=== PATIENT | female | born 1965 | race Caucasian/White ===

== ENCOUNTER 2024-01-23 15:02 | Outpatient (CLI) | payer BC, SELFPAY ==
[2024-01-30 17:14] LABS: Alpha-1-Antitrypsin 124 mg/dL (101-187); Phenotype (PI) MZ (.)
== END 2024-01-23 23:59 | disposition home or self-care (01) ==
LOC: LAB 15:05
PROVIDERS: PCP Nurse Practitioner; Visit Provider Internal Medicine Pulmonary Disease
DX: J43.9 Emphysema, unspecified (principal); Z72.0 Tobacco use
CPT/HCPCS: 36415; 82103; 82104

== ENCOUNTER 2024-01-29 06:42 | Outpatient (CLI) | payer BC, SELFPAY ==
--- NOTE | 2024-01-29 07:04 | CT_ITS ---
FINAL REPORT TECHNIQUE: Axial images were obtained through the chest without contrast. This study was performed with techniques to keep radiation doses as low as reasonably achievable, (ALARA). Individualized dose reduction techniques using automated exposure control or adjustment of mA and/or kV according to the patient's size were employed. CLINICAL HISTORY: Epmhysema FINDINGS: There is mild ectasia of the ascending aorta measuring 3.7 cm. There is no significant mediastinal mass or adenopathy. There are advanced changes of centrilobular emphysema. There are 2 noncalcified nodular densities in the medial right upper lobe. There is an 8 mm density well seen on image 55 of series 3. There is a 9 mm density well seen on image 58 of series 3. Small noncalcified nodules are seen in the medial left lower lobe measuring up to 4 mm. This is well-seen on image 89 of series 3. The heart size is normal. There is no pericardial or pleural effusion. Limited images of the upper abdomen are unremarkable. IMPRESSION: Pulmonary nodules as detailed above. Recommend follow-up in 3 to 6 months as per Fleischners criteria. Reviewed, Interpreted and Dictated by Austyn Haq MD Transcribed by Inez Burr Authenticated and [facility]
== END 2024-01-29 23:59 | disposition home or self-care (01) ==
LOC: RAD 06:43
PROVIDERS: PCP Nurse Practitioner; Visit Provider Internal Medicine Pulmonary Disease
DX: R91.8 Other nonspecific abnormal finding of lung field (principal)
CPT/HCPCS: 71250

== ENCOUNTER 2024-06-05 09:41 | Outpatient (CLI) | payer BC, SELFPAY ==
[2024-06-05 10:40] VITALS: PULSE 87
[2024-06-05] MEDS: ALBUTEROL 0.083% 2.5 MG/3 ML NEB IH (10:40)
== END 2024-06-05 23:59 | disposition home or self-care (01) ==
LOC: RT 09:41
PROVIDERS: PCP Nurse Practitioner; Visit Provider Internal Medicine Pulmonary Disease
DX: R06.09 Other forms of dyspnea (principal)
CPT/HCPCS: 94060; 94618; 94640; 94726; 94729; J7613

== ENCOUNTER 2024-08-06 13:33 | Outpatient (CLI) | payer BC, SELFPAY ==
--- OUTSIDE RECORDS SUMMARY | 2024-08-06 13:35 | XMS_ITS | Continuity of Care Document ---
Author Organization [facility] & [place] [facility] Address [address] [place] [address] Care Team Providers Care Flatbed Stitcher Name Role Phone LINDA KENDRICK Primary Care Provider LAURA HARE Postpartum Nurse [facility] Primary Care Provider Assessment Encounter Date Assessment Date Assessment LastModified by Organization Details LastModified Time 06/23/2024 06/23/2024 -continue Carbamazepine 200 mg TID -reviewed epilepsy education -reviewed diagnosis and treatment plan -f/u as scheduled [facility] Not available 06/23/2024 10:42:57 Plan of Treatment Reminders Order Date Submit Date Provider Last Modified By Organization Details Last Modified Time Details Appointments OV EST 15 025 10:30AM Laura Hare NP Not available Not available Not available OV EST 15 026 10:30AM Faustino Rivera M.D Not available Not available Not available Lab None record ed. Referral None record ed. Procedures None record ed. Surgeries None record ed. Imaging None record ed. Medication Orders None record ed. Patient TargetsNo targets recorded. Patient InstructionsNo instructions recorded. Reason for Referral None Reported. Problems Name Problem SNOMED Code Status Onset Date Resolution Date Notes Provider Name and Address Organization Details Recorded Time Helicobacter pylori-associ ated gastritis 295892403 Active 2023 Laura Hare NP [address], [address], [place], [address] , [facility] & [place] 4 15:14:14 Peptic ulcer 86093303 Active 2023 Laura Hare NP [address], [address], [place], [address] , [place] - [facility] - [place] & [place] 4 15:18:18 Nausea 821425993 Active 2023 Laura Hare NP [address], [address], [place], [address] , [place] [facility] [place] & [place] 4 15:45:40 Upper abdominal pain 53827514 Active 2023 Not Available [facility] 4 08:57:33 Irritable bowel syndrome characterized by alternating bowel habit 075536305 Active 2023 Not Available [facility] 4 08:57:33 Unintentional weight loss 652613750 Active 2023 Not Available [facility] 4 08:57:33 Problem Notes None recorded. Procedures Surgical History Date Name Laterality Status Provider Name and Address Organization Details Recorded Time 02/13/20 24 EGD/Endoscopy completed Sepideh Byrd [place] [facility] [place] 02/25/2024 14:51:35 01/02/20 24 EGD/Endoscopy completed Carolynn Dsouza [place] [facility] [place] & [place] 01/22/2024 17:21:27 01/02/20 24 Colonoscopy completed Carolynn Dsouza [place] [facility] [place] & [place] 01/22/2024 17:21:36 12/16/19 24 Date of Last Colonoscopy completed Jossie Cheng [place] [facility] [place] & [place] 06/23/2024 09:53:45 10/24/19 24 completed [facility] [place] [facility] [place] 12/05/2023 15:17:22 10/19/19 20 Date of Last Pap Smear completed Renetta [place] [facility] - [place] & [place] 12/05/2023 15:17:22 10/20/19 19 Most Recent Bone Density completed Renetta Phill [place] [facility] [place] 12/05/2023 15:17:22 03/12/19 06 Gastrointestinal Surgery completed Renetta Phill [place] [facility] [place] 12/05/2023 15:19:33 03/12/19 03 Thyroid Surgery completed Renetta [place] [facility] & [place] 12/05/2023 15:19:33 03/12/18 74 Appendectomy completed Renetta [place] [facility] & [place] 12/05/2023 15:19:33 Imaging Results None recorded. Procedure Notes None recorded. Medical Equipment None Reported. Allergies No known drug allergies Medications Name Sig Start Date Stop Date Status Note LastModified by Organization Details LastModified Time quetiapine 25 mg tablet TAKE ONE TABLET BY MOUTH NIGHTLY AT BEDTIME FOR SLEEP 01/27 completed Not Available Not Available Not Available amoxicillin 500 mg capsule TAKE TWO CAPSULES BY MOUTH TWICE DAILY FOR FOURTEEN DAYS 06/04 completed Not Available Not Available Not Available lamotrigine 200 mg tablet TAKE ONE TABLET BY MOUTH EVERY DAY active Not Available Not Available No t Available alprazolam 1 mg tablet TAKE 1 TABLET BY MOUTH TWICE DAILY active Not Available Not Available No t Available nicotine (polacrilex ) 2 mg gum chew a 2 mg piece bucally every 2 hours as needed for nicotine cravings active Not Available Not Available No t Available clarithromy berta 500 mg tablet Take 1 tablet every 12 hours by oral route for 14 days. 06/04 completed Not Available Not Available Not Available ondansetron HCl 4 mg tablet TAKE ONE TABLET BY MOUTH every 4 to 6 hours a needed for 8 days 06/04 completed Not Available Not Available Not Available medroxyprog esterone 5 mg tablet TAKE ONE TABLET BY MOUTH EVERY DAY active Not Available Not Available No t Available sertraline 100 mg tablet TAKE 2 TABLETS BY MOUTH DAILY 12/02 completed Not Available Not Available Not Available amoxicillin 500 mg tablet Take 2 tablets twice a day by oral route for 14 days. 06/04 completed Not Available Not Available Not Available carbamazepi ne 200 mg tablet TAKE ONE TABLET BY MOUTH THREE TIMES DAILY active Not Available Not Available No t Available estradiol 1 mg tablet TAKE ONE TABLET BY MOUTH EVERY DAY active Not Available Not Available No t Available calcium 500 mg (as calcium carbonate 1,250 mg) tablet TAKE ONE TABLET BY MOUTH EVERY DAY active Not Available Not Available No t Available levothyroxi ne 50 mcg tablet TAKE ONE TABLET BY MOUTH EVERY DAY active Not Available Not Available No t Available pantoprazol e 40 mg tablet,christo yed release TAKE ONE TABLET BY MOUTH TWICE DAILY FOR 30 DAYS active Not Available Not Available No t Available buspirone 30 mg tablet TAKE ONE TABLET BY MOUTH TWICE DAILY active Not Available Not Available No t Available promethazin e 25 mg tablet TAKE ONE TABLET BY MOUTH EVERY 4 TO 6 HOURS NEEDED FOR NAUSEA AND FOR VOMITING active Not Available Not Available No t Available mirtazapine 15 mg tablet TAKE ONE TABLET BY MOUTH ONCE DAILY FOR ANXIETY AND FOR SLEEP 12/02 completed Not Available Not Available Not Available albuterol sulfate HFA 90 mcg/actuati on aerosol inhaler inhale TWO puffs BY MOUTH FOUR times a DAY NEEDED FOR SHORTNESS OF BREATH OR wheezing active Not Available Not Available No t Available Vitamin B-12 1,000 mcg tablet TAKE ONE TABLET BY MOUTH EVERY DAY 12/02 completed Not Available Not Available Not Available Laxative (bisacodyl) 5 mg tablet,christo yed release TAKE TWO TABLETS BY MOUTH FOR ONE DAY 01/27 completed Not Available Not Available Not Available mirtazapine 7.5 mg tablet TAKE ONE TABLET BY MOUTH DAILY FOR ANXIETY 12/02 completed Not Available Not Available Not Available cholecalcif colten (vitamin D3) 50 mcg (2,000 unit) tablet TAKE ONE TABLET BY MOUTH EVERY DAY 12/02 completed Not Available Not Available Not Available ClearLax 17 gram/dose oral powder TAKE 10 capfuls in 32 OUNCE gatorade AT FOUR IN THE EVENING DAY BEFORE THE procedure , REPEAT AT FOUR IN THE MORNING ON DAY of procedure . 01/27 completed Not Available Not Available Not Available Vitals Date Recorded Body height Body weight Body temperature Oxygen saturation Oxygen saturation in Arterial blood by Pulse oximetry Heart rate Systolic blood pressure Diastolic blood pressure Provider Name and Address Organization Details Last Updated DateTime 5 162.56 cm 93601.5 5 g 97.7 [degF] 98 % 98 % 86 /min 122 mm[Hg] 78 mm[Hg] Jossie Cheng [place] [facility] [place] & [place] 5 09:53:08 Social History Question Answer Notes LastModified by Organizat ion Details LastModified Time Tobacco Smoking Status Current Every Day Smoker Renetta Phill null, [place] [facility] - [place] & [place] 12/05/2023 15:17:42 Do You Have An Advance Directive? No Information not available 12/05/2023 Are You Blind Or Do You Have Difficulty Seeing? No Information not available 12/05/2023 Are You Passively Exposed To Smoke? No Information not available 12/05/2023 How Much Tobacco Do You Smoke? 1 PPD Information not available 12/05/2023 How Many Years Have You Smoked Tobacco? 40 Information not available 12/05/2023 Sex: Unknown Functional Status Question Answer Note LastModified by Organizat ion Details LastModified Time Do you use any illicit or recreational drugs? No Information not available 12/05/2023 What is your level of alcohol consumption? None Information not available 12/05/2023 Do you or have you ever used smokeless tobacco? Never used smokeless tobacco Information not available 12/05/2023 What is your exercise level? Occasional Information not available 12/05/2023 Mental Status Question Answer Note LastModified by Organization D etails LastModified Time Do you feel stressed (tense, restless, nervous, or anxious, or unable to sleep at night)? [id number] Information not available 12/05/2023 Family History Nothing Reported. Medical History Condition Response Coronary Artery Disease N None N Gout N Colon Cancer N Kidney Stones N Hyperthyroidism N Ear or Hearing Problems Y Thyroid Problems Y Hypothyroidism N Depression N COPD Y GI Problems Y Osteoporosis/Osteopenia N Anemia Y Diverticulitis/Diverticulosis N Colon Polyps N Anxiety Disorder N Diabetes N Bleeding Disorder N Vision or Eye Problems Y Arthritis N Seizures/Epilepsy Y Tuberculosis N Hyperlipidemia N Cancer N Stroke N Asthma N Sleep Apnea N GERD/Reflux N Hepatitis N Liver Disease N Cirrhosis N Psychiatric/Mental Health Condition Y Heart Disease N Hypertension N Kidney Disease N Gynecological History Statement/Question Response Abnormal Pap Y Date of Last Pap Smear 10/19/2019 Date of Last Colonoscopy 12/16/2023 10/24/2023 Most Recent Bone Density 10/19/2018 Date of LMP 05/10/2001 Sexually Active? Y Obstetrics History GPAL:G 0 P 0 0 0 0 Past Encounters Encounter ID Performer Location Encounter Start Date Encounter Closed Date Diagnosis/Indication Diagnosis SNOMED-CT Code Diagnosis ICD10 Code Diagnosis Note [id number] Laura Hare NP [facility] [address] [facility] [place] [address] 06/04/2024 10:47:57 06/04/2024 11:19:27 Peptic ulcer 84412045 K27.9 PUD with significan t edema and partial gastric outlet obstructio n noted on EGD 01/02/24. Follow-up EGD completed 02/13/2024 with peptic ulcer disease again noted with pyloric channel narrowing secondary to chronic inflammati on. Improved from prior EGD 12/2023. Recommend continued avoidance of NSAIDs. Recommend continued use of pantoprazo le 40 mg p.o. b.i.d.. We will send refills today. Irritable bowel syndrome characterized by alternating bowel habit 588097084 K58.9 Experienci ng some occasional episodes of constipati on at this time. Recommend starting miralax 17 gm po daily as well as OTC fiber supplement s for treatment. Colonoscop y with negative random colon biopsies 01/02/2024 . History of Helicobacter pylori infection 3596475090 8602575 Z86.19 History of H pylori gastritis confirmed on pathology from EGD 12/2023. Follow-up EGD completed 02/13/2024 confirmed eradicatio n with negative pathology. I have recommende d starting daily OTC probiotics for 1-2 months. 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 Jennifer Aparicio is a 59 y/o F with a history of epilepsy. She had a GTC seizure at age 23. She has had about 5-6 seizures in her lifetime. Has had workup in the past including brain imaging and EEG and unclear etiology of her epilepsy.Has been on Carbamazepine 200 mg TID for years. No seizures since 2003.She also has anxiety and takes medication for that. Faustino Rivera M.D [address] [place] [address], [address], [place], [address], [place] - [facility] - [place] & [place] 06/23/2024 10:43:51 OBGyn Episode No OBEpisode recorded.
--- OUTSIDE RECORDS SUMMARY | 2024-08-06 13:36 | XMS_ITS | Data Portability ---
Author Organization [place] - [facility] - [place] [facility] ADMIN Address [address] [place] [address] Care Team Providers Care Office Spec Name Role Phone LINDA KENDRICK Primary Care Provider [phone] LAURA HARE Timber Watchman [facility] Primary Care Provider [phone] Assessment Encounter Date Assessment Date Assessment LastModified by Organization Details LastModified Time 06/23/2024 06/23/2024 -continue Carbamazepine 200 mg TID -reviewed epilepsy education -reviewed diagnosis and treatment plan -f/u as scheduled [facility] Not available 06/23/2024 10:42:57 Plan of Treatment Reminders Order Date Submit Date Provider Last Modified By Organization Details Last Modified Time Details Appointments OV EST 15 2024 10:30A M Laura Hare NP Not available Not available Not available OV EST 15 2025 10:30A M Faustino Rivera M.D Not available Not available Not available Lab None recorded . Referral None recorded . Procedures upper endoscop y procedur e (EGD) (PROC) 2023 024 faviola Pichardo MD, [address] [place], [address], 01/04/2024 14:38:18 colonosc opy procedur e (PROC) 2023 024 faviola Pichardo MD, [address] [place], [address], 12/13/2023 09:04:20 upper endoscop y procedur e (EGD) (PROC) 2023 faviola Pichardo MD, [address], Radha [facility], [place], [address], 01/04/2024 14:38:17 Surgeries None recorded . Imaging None recorded . Medication Orders pantopra zole 40 mg tablet,d elayed release 2024 025 [facility], [address] [place] [address], [address], 07/17/2024 11:38:48 Zofran 4 mg tablet 2023 025 [facility], [address] [place] [address], [id number], 06/04/2024 11:09:47 clarithr omycin 500 mg tablet 2023 025 [facility], [address] [place] [address], [id number], 06/04/2024 12:53:22 amoxicil jeanine 500 mg tablet 2023 025 [facility], [address] [place] [address], [address], 06/04/2024 12:53:22 Miralax 17 gram/dos e oral powder 2023 024 [facility], [address] [place] [address], [id number], 12/06/2023 16:51:12 Dulcolax (bisacod yl) 5 mg tablet,d elayed release 2023 024 [facility], [address] [place] [address], [id number], 12/06/2023 16:51:15 Patient TargetsNo targets recorded. Patient InstructionsNo instructions recorded. Reason for Referral None Reported. Results Created Date Observation Date Name Description Value Unit Range Abnormal Flag Note LastModifiedBy Organization Detail LastModifiedTime 01/16/20 24 01/16/2024 RF, upper gastr ointe obinna l tract , w/ air, w/ contr ast [facility] [address] [place] [address] Phone: Fax: Name: BYRON APARICIO Exam Date: : [birth year] Age 58 years Gender : F Access ion: [id number] Physic loida: CHEYENNE HERNANDEZ Facili ty: [facility] Facili ty HSV: Outpat ient Exam: UGI W/AIR CONTRA ST PROCED URE: [place] UPPER GI DOUBLE CONTRA ST CLINIC AL INDICA TION: Peptic ulcer. COMPAR GERALDO: CT abdome n and pelvis dated . TECHNI QUE: A prelim inary rotary filter operator radiog raph of the abdome n was obtain ed. The esopha alanna, stomac h, and proxim al small bowel are evalua ailyn with double contra st techni que using real-t alma rosa fluoro scopy and acquis ition of multip le cine clips. FINDIN GS: Medical Insurance Claims Specialist: Prelim inary rotary filter operator view of the abdome n demons trates a nonobs tructi ve bowel gas patter n. The visual ized lung bases are clear. Esopha alanna: Normal primar y stripp ing wave. Narrow ing is seen at the distal end of the esopha alanna.. No defini te mucosa l abnorm alitie s. No persis tent intral uminal fillin g defect s. No areas of abnorm al extrin sic mass effect . No defini te divert iculum . Normal motili ty. Gastro esopha geal juncti on: No eviden ce of hiatal hernia . No signif icant reflux during the examin ation. 13 mm barium tablet is swallo wed with water withou t diffic ulty and passes to the narrow ed area in the distal esopha alanna. Multip le swallo ws of thick barium are seen to pass around the tablet , howeve r the tablet does not move. Stomac h ^ Duoden um: No eviden ce for fillin g defect , ulcera tion or fold thicke tigre. No defini te abnorm ality of the duoden al bulb and sweep. Visual ized proxim al small bowel normal . IMPRES VALENTIN: Distal esopha geal narrow ing. Fluoro scopy radiat ion dose/D AP: 8 mGy Fluoro scopy time: 1 minute 43 second s Electr onical ly signed by: Sebastián Hollis DO 2023 04:47 PM EST RP Workst ation: [id number] Dictat ed By: Sebastián Hollis Transc ribed By: Transc ribed On: 12:07 PM Electr onical ly signed by: Sebastián Hollis Thank you for referr BYRON Cook to [facility]. Legall y authen ticate d by SERAFIN KUMAR DO 2023-03-17 12:07: 18 CC'ed Logic: Orderi ng Provid er: SLOANE QUINN CC Provid er: MIREILLE PEREZ Attend ing Provid er: SLOANE QUINN Referr ing Provid er: SLOANE QUINN Admitt ing Provid er: SLOANE vee[address] [place] [address] (Radiology) [address] [place] [address] , [place], [address], 01/29/2024 16:15:47 Result Notes None recorded. Problems Name Problem SNOMED Code Status Onset Date Resolution Date Notes Provider Name and Address Organization Details Recorded Time Helicobacter pylori-associ ated gastritis 086331249 Active 2023 Laura Hare NP [address] [facility], [address], [address] , [place] - [facility] [place] & [place] 4 15:14:14 Peptic ulcer 09035889 Active 2023 Laura Hare NP [address] [facility], [address], [address] , [place] - [facility] [place] & [place] 4 15:18:18 Nausea 721324179 Active 2023 Laura Hare NP [address], [address], [address] , [place] - [facility] [place] & [place] 15:45:40 Upper abdominal pain 64059934 Active 2023 Not Available [facility] 4 08:57:33 Irritable bowel syndrome characterized by alternating bowel habit 147143709 Active 2023 Not Available [facility] 4 08:57:33 Unintentional weight loss 371301379 Active 2023 Not Available [facility] 4 08:57:33 Problem Notes None recorded. Procedures Surgical History Date Name Laterality Status Provider Name and Address Organization Details Recorded Time 02/13/20 24 EGD/Endoscopy completed Sepideh Byrd [place] - [facility] [place] & [place] 02/25/2024 14:51:35 01/02/20 24 EGD/Endoscopy completed Carolynn Dsouza [place] [facility] [place] & [place] 01/22/2024 17:21:27 01/02/20 24 Colonoscopy completed Carolynn Dsouza [place] [facility] [place] [facility] [place] 01/22/2024 17:21:36 12/16/19 24 Date of Last Colonoscopy completed [place]ossie Cheng [place] [facility] [place] [facility] [place] 06/23/2024 09:53:45 10/24/19 24 completed Renetta Phill [place] [facility] [place] [facility] [place] 12/05/2023 15:17:22 10/19/19 20 Date of Last Pap Smear completed Renetta [place] [facility] [place] [facility] [place] 12/05/2023 15:17:22 10/20/19 19 Most Recent Bone Density completed Renetta [place] [facility] [place] [facility] [place] 12/05/2023 15:17:22 03/12/19 06 Gastrointestinal Surgery completed Renetta [place] [facility] [place] [facility] [place] 12/05/2023 15:19:33 03/12/19 03 Thyroid Surgery completed Renetta [place] [facility] [place] [facility] [place] 12/05/2023 15:19:33 03/12/18 74 Appendectomy completed Renetta [place] [facility] [place] [facility] [place] 12/05/2023 15:19:33 Imaging Results None recorded. Procedure [...] Available Vitals Date Recorded Body height Body mass index (BMI) Body weight Body temperature Oxygen saturation Oxygen saturation in Arterial blood by Pulse oximetry Heart rate Provider Name and Address Organization Details Last Updated DateTime 5 162.56 cm 17.9 kg/m2 18772.6 1 g 97.3 [degF] 97 % 97 % 98 /min Renetta Phill [facility] & [place] 5 11:07:41 Date Recorded Body height Body weight Body temperature Oxygen saturation Oxygen saturation in Arterial blood by Pulse oximetry Heart rate Systolic blood pressure Diastolic blood pressure Provider Name and Address Organization Details Last Updated DateTime 5 162.56 cm 61420.5 5 g 97.7 [degF] 98 % 98 % 86 /min 122 mm[Hg] 78 mm[Hg] Jossie Cheng [facility] & [place] 5 09:53:08 Date Recorded Body height Body mass index (BMI) Body weight Body temperature Oxygen saturation Oxygen saturation in Arterial blood by Pulse oximetry Heart rate Provider Name and Address Organization Details Last Updated DateTime 4 162.56 cm 17.9 kg/m2 37872.3 2 g 97.6 [degF] 98 % 98 % 75 /min Renetta Phill [place] [facility] & [place] 4 15:16:41 Date Recorded Body height Body mass index (BMI) Body weight Body temperature Oxygen saturation Oxygen saturation in Arterial blood by Pulse oximetry Heart rate Provider Name and Address Organization Details Last Updated DateTime 4 162.56 cm 17.8 kg/m2 35117.8 9 g 97.9 [degF] 96 % 96 % 79 /min Renetta Phill [place] [facility] & [place] 4 14:54:48 Social History Question Answer Notes LastModified by Student Designed Details LastModified Time Tobacco Smoking Status Current Every Day Smoker Renetta Pollock [facility], [place] [facility] & [place] 12/05/2023 15:17:42 Do You Have An Advance [...] Functional Status Question Answer Note LastModified by Student Designed Details LastModified Time Do you use any [...] anxious, or unable to sleep at night)? [id number] Information not available 12/05/2023 Family History Nothing Reported. Medical History Condition Response Coronary Artery Disease N None N Gout N Colon Cancer N Kidney Stones N Ear or Hearing Problems Y Hyperthyroidism N Thyroid Problems Y Depression N COPD Y Hypothyroidism N GI Problems Y Osteoporosis/Osteopenia N Anemia Y Diverticulitis/Diverticulosis N Colon Polyps N Anxiety Disorder N Diabetes N Bleeding Disorder N Vision or Eye Problems Y Arthritis N Seizures/Epilepsy Y Tuberculosis N Hyperlipidemia N Cancer N Stroke N Asthma N Sleep Apnea N GERD/Reflux N Hepatitis N Cirrhosis N Liver Disease N Heart Disease N Psychiatric/Mental Health Condition Y Hypertension N Kidney Disease N Gynecological History [...] SNOMED-CT Code Diagnosis ICD10 Code Diagnosis Note [id number] Laura Hare NP [facility] [address] [place] [address] 12/05/2023 14:57:45 12/07/2023 15:08:27 Upper abdominal pain 29846491 R10.10 upper abdominal pain off and on for the past 1 year with recent worsening symptoms. Describes burning and pressure with associated nausea lasting several hours. History of cholecyste ctomy. CT abdomen pelvis 04/2023 with mild stool burden noted, otherwise negative. Recommend EGD to evaluate for esophagiti s, hiatal hernia, erosive gastritis, other. Nausea 443068564 R11.0 episodes of nausea comes and goes. Plan for EGD as above to further evaluate. Irritable bowel syndrome characterized by alternating bowel habit 336930636 K58.9 alternatin g constipati on and diarrhea Ongoing for many years. Currently taking [employer]. Daily use of MiraLax caused increased diarrhea. Discussed starting magnesium supplement s however patient would like to hold off at this time. Unintentio nal weight loss 250133768 R63.4 14 lb weight loss over the past 6 months. She has been under lot of stress which could be contributi ng to her symptoms. Recommend comprehens dennis evaluation with EGD/colono scopy to further evaluate. Last colonoscop y greater than 10 years ago which she reports as normal. [id number] Laura Hare NP [facility] [address] [place] [address] 01/30/2024 14:41:50 01/30/2024 15:13:41 Helicobacter pylori-associated gastritis 929961525 B96.81 H pylori gastritis confirmed on pathology from EGD 01/02/2024 . Recommend continued use of PPI b.i.d. as prescribed following procedure. Will send antibiotic s for treatment. Nausea 627970443 R11.0 episodes of nausea comes and goes. Plan to treat H pylori above. Recommend Zofran Q 4-6 hours p.r.n.. Irritable bowel syndrome characterized by alternating bowel habit 360977415 K58.9 Colonoscop y with negative random colon biopsies 01/02/2024 . Peptic ulcer 62062102 K2 7.9 PUD with significan t edema and partial gastric outlet obstructio n noted on EGD 01/02/24. patient continues pantoprazo le 40 mg b.i.d. as prescribed following procedure. Plan to treat H pylori as above. UGI with esophagram completed 01/16/2024 noted distal esophageal narrowing. Patient is scheduled for follow-up EGD February 12. [id number] Laura Hare NP [facility] [address] [place] [address] 06/04/2024 10:47:57 06/04/2024 11:19:27 Peptic ulcer 13486306 K27.9 PUD with significan t edema and [...] bowel syndrome characterized by alternating bowel habit 442558274 K58.9 Experienci ng some occasional episodes of constipati on at this time. Recommend starting miralax 17 gm po daily as well as OTC fiber supplement s for treatment. Colonoscop y with negative random colon biopsies 01/02/2024 . History of Helicobacter pylori infection 7028593529 8680831 Z86.19 History of H pylori gastritis confirmed on pathology from EGD 12/2023. Follow-up EGD completed 02/13/2024 confirmed eradicatio n with negative pathology. I have recommende d starting daily OTC probiotics for 1-2 months. [id number] Faustino Rivera M.D [facility] [address] [facility] [place] [address] 06/23/2024 09:18:31 06/23/2024 10:47:59 Idiopathic generalized epilepsy 74850198 G40.309 Health Concerns Section Related Observation LastModified by Organization Detai ls LastModified Time None Recorded Concern Status LastModified by Organization Details LastModified Time None Recorded Advance Directives Directive N: Payers Insurance Date Sequence Insurance Name Policy Number Policy Goldman Covered Member ID Goldman Member ID Guarantor Name 06/20/2024 1 [employer] ([place]) [id number] Byron Aparicio [id number] Byron Aparicio Notes Date Note Type Note Provider Name and Address Organization Details Recorded Time 12/05/2023 text/html 58-year-old fema rene with past medical history anxiety, cholecystectomy, IBS, hypothyroidism. Patient presents to clinic today with complaints of upper abdominal pain, nausea, and unintentional weight loss. Describes episodes of epigatric burning pressure with associated nausea for the past 1 year with recent worsening symptoms. Pain will sometimes last several hours. Use of Tums Gas-X promethazine will sometimes improve symptoms. She was told in the past she had a hernia in her upper abdomen. CT abdomen reviewed 04/2023 noting mild stool, otherwise negative. Normal LFTs, HGB, and HCT 10/2023. She reports occasional GERD symptoms which he treats with OTC Tums. History of alternating constipation and diarrhea for many years diagnosed with IBS by Dr. Up. Last colonoscopy 10 years ago reported as normal. She is tried MiraLax in the past however experience increased diarrhea with use. Estimated 14 lb weight loss over the past 6 months. Laura Hare NP [address] [facility], [address], [place], [address], [facility] & [place] 12/05/2023 15:46:06 01/30/2024 text/html patient returns to clinic today for follow-up post upper and lower endoscopy completed 01/02/2024. EGD was significant for diffuse gastritis, PUD with significant edema and partial gastric outlet obstruction. She continues pantoprazole 40 mg b.i.d. as prescribed following procedure. Pathology confirmed H pylori as well as mild reflux changes. She continues to report significant upper abdominal pain as well as nausea. upper GI completed 01/16/2024 noted narrowing in the distal esophagus. Colonoscopy appeared normal with negative random colon biopsies. Laura Hare NP [address] [facility], [address], [place], [address], [facility] & [place] 01/30/2024 15:26:09 06/04/2024 text/html Patient returns to clinic today for follow-up. History of H pylori gastritis, PUD with significant edema and partial gastric outlet obstruction noted on EGD 01/02/2024. She completed antibiotics for treatment. She had a follow-up EGD completed 02/13/2024 with peptic ulcer disease again noted as well as a large stellate type scar noted from prior PUD. Pyloric channel was narrowed secondary to chronic inflammation however improved from prior EGD 12/2023. Pathology from 02/13/2024 negative for H pylori. She continues Pantoprazole 40 mg BID. She is feeling much better at this time and reports only occasional episodes of epigastric pain at this time. Her appetite has improved. She does report some recent episodes of constipation that comes and goes. Upper GI completed 01/16/2024 noted narrowing in the distal esophagus.Colonosco py 01/02/24 appeared normal with negative random colon biopsies. Laura Hare NP [address] [facility], [address], [place], [address], [facility] & [place] 06/04/2024 12:35:04 06/23/2024 text/html Ms. Byron Aparicio is a 59 y/o F with [...] takes medication for that. Faustino Rivera M.D [address] [place] [address], [address], [place], [address], [facility] - [facility] - [place] & [place] 06/23/2024 10:43:51 OBGyn Episode No OBEpisode recorded.
--- NOTE | 2024-08-06 14:00 | CT_ITS ---
FINAL REPORT TECHNIQUE: Axial images were obtained through the chest without contrast. Reconstructed images were obtained and reviewed. This study was performed with techniques to keep radiation doses as low as reasonably achievable, (ALARA). Individualized dose reduction techniques using automated exposure control or adjustment of mA and/or kV according to the patient's size were employed. 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 The heart size is normal. There is no pericardial or pleural effusion. There are advanced changes of centrilobular emphysema. Again identified are 2 noncalcified nodular opacities in the medial right upper lobe which are stable. Findings are best seen on images 62 through 71 of series 3. Nodules in the medial left lower lobe are again identified measuring up to 4 mm. These nodules are also stable and well-seen on image 102 of series 3. There are scattered calcified granulomas. No new mass or nodule is identified. Limited images of the upper abdomen reveal cholecystectomy. IMPRESSION: Stable pulmonary nodules as detailed above. Recommend follow-up in 1 year. Ectasia of the ascending aorta. Reviewed, Interpreted and Dictated by Austyn Haq MD Transcribed by Inez Burr Authenticated and [facility]
[2024-08-06 18:28] LABS: INR 1.03 (0.9-1.1); Prothrombin Time 11.4 seconds (10.1-12.5)
[2024-08-06 19:15] LABS: Alanine Aminotransferase 11 U/L (12-78); Anion Gap 10.6 mEq/L (5-15); Aspartate Amino Transferase 24 U/L (14-36); Bilirubin,Total 0.3 mg/dl (0.2-1.3); Blood Urea Nitrogen 7 mg/dl (7-17); Calcium 8.8 mg/dl (8.4-10.2); Carbon Dioxide 33 mmol/L (22.0-30.0); Chloride 95 mmol/L (98-107); Estimated Glomerular Filt Rate 73 ml/min (>60); GFR (African American) 89 ML/MIN (>60); Glucose 86 mg/dl (74-100); Potassium 3.6 mmoL/L (3.5-5.1); Sodium 135 mmol/L (136-145)
[2024-08-06 19:16] LABS: Albumin Level 4.6 g/dl (3.5-5.0); Albumin/Globulin Ratio 1.8 (1.1-1.8); Alkaline Phosphatase 79 U/L (38-126); Globulin 2.5 g/dL (1.3-3.2); Total Protein,Serum 7.1 g/dl (6.3-8.2)
== END 2024-08-06 23:59 | disposition home or self-care (01) ==
LOC: RAD 13:34
PROVIDERS: PCP Nurse Practitioner; Visit Provider Internal Medicine Pulmonary Disease
DX: I77.810 Thoracic aortic ectasia (principal); R91.8 Other nonspecific abnormal finding of lung field; Z12.2 Encounter for screening for malignant neoplasm of respiratory organs; E88.01 Alpha-1-antitrypsin deficiency; J44.9 Chronic obstructive pulmonary disease, unspecified
CPT/HCPCS: 36415; 71250; 80053; 85610

== ENCOUNTER 2024-09-22 10:52 | Outpatient (CLI) | payer BC, SELFPAY ==
--- OUTSIDE RECORDS SUMMARY | 2024-09-22 10:55 | XMS_ITS | Data Portability ---
Author Organization [place] - [facility] [place] [facility] ADMIN Address [address] [place] [address] Care Team Providers Care Drapery Cutter Name Role Phone LINDA KENDRICK Primary Care Provider LAURA HARE Soldering Machine Setter [phone] [facility] Primary Care Provider Assessment Encounter Date Assessment Date Assessment LastModified by Organization Details LastModified Time 06/23/2024 06/23/2024 -continue Carbamazepine 200 mg TID -reviewed epilepsy education -reviewed diagnosis and treatment plan -f[facility]u as scheduled [facility] 06/23/2024 10:42:57 Plan of Treatment [...] 024 faviola Pichardo MD, [address] [place], [address], 01/04/2024 14:38:18 colonosc opy procedur e (PROC) 2023 024 faviola Pichardo MD, [address], [place], [address], 12/13/2023 09:04:20 upper endoscop y procedur e (EGD) (PROC) 2023 024 faviola Pichardo MD, [address] [place], [address], 01/04/2024 14:38:17 Surgeries None recorded . Imaging None recorded . Medication Orders pantopra zole 40 mg tablet,d elayed release 2024 025 [facility], [address] [place] [address], [id number], 09/17/2024 17:21:57 Zofran 4 mg tablet 2023 025 [facility], [address] [place] [address], [id number], 06/04/2024 11:09:47 clarithr omycin 500 mg tablet 2023 025 [facility], [address] [place] [address], [id number], 06/04/2024 12:53:22 amoxicil jeanine 500 mg tablet 2023 025 [facility], [address] [place] [address], [id number], 06/04/2024 12:53:22 Miralax 17 gram/dos e oral powder 2023 024 [facility], [address] [place] [address], [id number], 12/06/2023 16:51:12 Dulcolax (bisacod yl) 5 mg tablet,d elayed release 2023 024 [facility], [address] [place] [address], [id number], 12/06/2023 16:51:15 Patient TargetsNo targets recorded. Patient InstructionsNo instructions recorded. Reason for Referral None Reported. Results Created Date Observation Date Name Description Value Unit Range Abnormal Flag Note LastModifiedBy Organization Detail LastModifiedTime 01/16/20 24 01/16/2024 RF, upper gastr ointe obinna l tract , w/ air, w/ contr ast PO [facility] [address] [place] [address] Phone: Fax: Name: BYRON APARICIO Exam Date: : [birth year] Age 58 years Gender : F Access ion: [id number] Physic loida: CHEYENNE HERNANDEZ Fac[place] ty: [place] Facili ty HSV: Outpat ient Exam: UGI W/AIR CONTRA ST PROCED URE: FL UPPER GI DOUBLE CONTRA ST CLINIC AL INDICA TION: Peptic ulcer. COMPAR GERALDO: CT abdome n and pelvis dated . TECHNI QUE: A prelim inary body mechanic radiog raph of the abdome n was obtain ed. The esopha alanna, stomac h, and proxim al small bowel are evalua ailyn with double contra st techni que using real-t alma rosa fluoro scopy and acquis ition of multip le cine clips. FINDIN GS: Lcsw: Prelim inary body mechanic view of the abdome n demons trates [...] proxim al small bowel normal . IMPRES VAELNTIN: Distal esopha geal narrow ing. Fluoro scopy radiat ion dose/D AP: 8 mGy Fluoro scopy time: 1 minute 43 second s Electr onical ly signed by: Sebastián Hollis DO 2023 04:47 PM EST RP Workst ation: [id number] Dictat ed By: Sebastián Hollis Transc ribed By: Transc ribed On: 12:07 PM Electr onical ly signed by: Sebastián Hollis Thank you for referr ing BYRON APARICIO to [facility]. Legall y authen ticate d by SERAFIN KUMAR DO 2023-03-17 12:07: 18 CC'ed Logic: Orderi ng Provid er: SLOANE QUINN CC Provid er: MIREILLE PEREZ Attend ing Provid er: SLOANE QUINN Referr ing Provid er: SLOANE QUINN Admitt ing Provid er: SLOANE vee[address] [place] [address] (Radiology) [address] [place] [address] [place], [address], 01/29/2024 16:15:47 Result Notes Documentation Provider Name and Address Organization Details Recorded Time Rf, Upper Gastrointestinal Tract, W/ Air, W/ Contrast Po : [address] [place] [address] Name: BYRON APARICIO Exam Date: 01/16/2024 : 1965 Age 58 years Gender: F Physician: CHEYENNE CRUZ Facility: [facility] Facility HSV: Outpatient Exam: UGI W/AIR CONTRAST PROCEDURE: FL UPPER GI DOUBLE CONTRAST CLINICAL INDICATION: Peptic ulcer. COMPARISON: CT abdomen and pelvis dated 04/26/2023. TECHNIQUE: A preliminary body mechanic radiograph of the abdomen was obtained. The esophagus, stomach, and proximal small bowel are evaluated with double contrast technique using real-time fluoroscopy and acquisition of multiple cine clips. FINDINGS: Lcsw: Preliminary body mechanic view of the abdomen demonstrates a nonobstructive bowel gas pattern. The visualized lung bases are clear. Esophagus: Normal primary stripping wave. Narrowing is seen at the distal end of the esophagus.. No definite mucosal abnormalities. No persistent intraluminal filling defects. No areas of abnormal extrinsic mass effect. No definite diverticulum. Normal motility. Gastroesophageal junction: No evidence of hiatal hernia. No significant reflux during the examination. 13 mm barium tablet is swallowed with water without difficulty and passes to the narrowed area in the distal esophagus. Multiple swallows of thick barium are seen to pass around the tablet, however the tablet does not move. Stomach ^ Duodenum: No evidence for filling defect, ulceration or fold thickening. No definite abnormality of the duodenal bulb and sweep. Visualized proximal small bowel normal. IMPRESSION: Distal esophageal narrowing. Fluoroscopy radiation dose/DAP: 8 mGy Fluoroscopy time: 1 minute 43 seconds Electronically signed by: Sebastián Hollis DO 01/16/2024 04:47 PM [facility] Dictated By: Sebastián Hollis Transcribed By: Transcribed On: 01/16/2024 12:07 PM Electronically signed by: Sebastián Hollis 01/16/2024 Thank you for referring BYRON APARICIO to [facility]. Legally authenticated by SERAFIN KUMAR DO 2024-01-16 12:07:18 CC'ed Logic: Ordering Provider: NANCY QUINN CC Provider: MIREILLE MCKEON Attending Provider: NANCY QUINN Referring Provider: NANCY QUINN Admitting Provider: NANCY Hare NP [address], [address], [place], [address], [place] [facility] [place] 01/29/2024 16:15:47 Problems Name Problem SNOMED Code Status Onset Date Resolution Date Notes Provider Name and Address Organization Details Recorded Time Helicobacter pylori-associ ated gastritis 451885792 Active 2023 Laura Hare NP [address], [address], [place], [address] , [place] [facility] [place] 15:14:14 Peptic ulcer 57398830 Active 2023 Laura Hare NP [address], [address], [place], [address] , [place] [facility] [place] 4 15:18:18 Nausea 136638566 Active 2023 Laura Hare NP [address], [address], [place], [address] , [place] [facility] [place] 4 15:45:40 Upper abdominal pain 51857276 Active 2023 Not Available [facility] 4 08:57:33 Irritable bowel syndrome characterized by alternating bowel habit 392424808 Active 2023 Not Available [facility] 4 08:57:33 Unintentional weight loss 005077631 Active 2023 Not Available [facility] 4 08:57:33 Problem Notes None recorded. Procedures Surgical History Date Name Laterality Status Provider Name and Address Organization Details Recorded Time 02/13/20 24 EGD/Endoscopy completed Sepideh Byrd [place] [facility] [place] & [place] 02/25/2024 14:51:35 01/02/20 24 EGD/Endoscopy completed Carolynn Dsouza [place] [facility] [place] 01/22/2024 17:21:27 01/02/20 24 Colonoscopy completed Carolynn Dsouza [place] [facility] [place] 01/22/2024 17:21:36 12/16/19 24 Date of Last Colonoscopy completed Jossei Cheng [place] [facility] [place] 06/23/2024 09:53:45 10/24/19 24 completed Renetta Brandon [place] [facility] [place] 12/05/2023 15:17:22 10/19/19 20 Date of Last Pap Smear completed Renetta Brandon [place] [facility] [place] 12/05/2023 15:17:22 10/20/19 19 Most Recent Bone Density completed Renetta Brandon [place] [facility] [place] 12/05/2023 15:17:22 03/12/19 06 Gastrointestinal Surgery completed Renetta Phill [place] [facility] [place] 12/05/2023 15:19:33 03/12/19 03 Thyroid Surgery completed Renetta Brandon [place] [facility] [place] 12/05/2023 15:19:33 03/12/18 74 Appendectomy completed Renetta Brandon [place] [facility] [place] 12/05/2023 15:19:33 Imaging Results None recorded. Procedure [...] Updated DateTime 5 162.56 cm 17.9 kg/m2 45818.6 1 g 97.3 [degF] 97 % 97 % 98 /min Renetta Phill [facility] [place] 5 11:07:41 Date Recorded Body height Body weight Body temperature Oxygen saturation Oxygen saturation in Arterial blood by Pulse oximetry Heart rate Systolic And Diastolic Provider Name and Address Organization Details Last Updated DateTime 5 162.56 cm 79237.5 5 g 97.7 [degF] 98 % 98 % 86 /min 122/78 mm[Hg] Jossie [facility] & [place] 5 09:53:08 Date Recorded Body height Body mass index (BMI) Body weight Body temperature Oxygen saturation Oxygen saturation in Arterial blood by Pulse oximetry Heart rate Provider Name and Address Organization Details Last Updated DateTime 4 162.56 cm 17.9 kg/m2 27887.3 2 g 97.6 [degF] 98 % 98 % 75 /min Renetta Phill RENNER [facility] & [place] 4 15:16:41 Date Recorded Body height Body mass index (BMI) Body weight Body temperature Oxygen saturation Oxygen saturation in Arterial blood by Pulse oximetry Heart rate Provider Name and Address Organization Details Last Updated DateTime 4 162.56 cm 17.8 kg/m2 24251.8 9 g 97.9 [degF] 96 % 96 % 79 /min Renetta Phill RENNER [facility] & [place] 4 14:54:48 Social History Question Answer Notes LastModified by Mozio Details LastModified Time Tobacco Smoking Status Current Every Day Smoker Renetta Pollock [facility], [place] [facility] & [place] 12/05/2023 15:17:42 Do You Have An Advance [...] Functional Status Question Answer Note LastModified by Mozio Details LastModified Time Do you use any [...] anxious, or unable to sleep at night)? [id number] Information not available 12/05/2023 Family History Nothing Reported. Medical History Condition Response Coronary Artery Disease N None N Gout N Colon Cancer N Kidney Stones N Ear or Hearing Problems Y Hyperthyroidism N Thyroid Problems Y Hypothyroidism N Depression N COPD Y GI Problems Y Osteoporosis/Osteopenia N Anemia Y Diverticulitis/Diverticulosis N Colon Polyps N Diabetes N Anxiety Disorder N Bleeding Disorder N Vision or Eye Problems Y Seizures/Epilepsy Y Arthritis N Tuberculosis N Hyperlipidemia N Cancer N Stroke [...] SNOMED-CT Code Diagnosis ICD10 Code Diagnosis Note [id number] Laura Hare NP [facility] [address] [place] [phone] 12/05/2023 14:57:45 12/07/2023 15:08:27 Upper abdominal pain 84269762 R10.10 upper abdominal pain off and on for the past 1 year with recent worsening symptoms. Describes burning and pressure with associated nausea lasting several hours. History of cholecyste ctomy. CT abdomen pelvis 04/2023 with mild stool burden noted, otherwise negative. Recommend EGD to evaluate for esophagiti s, hiatal hernia, erosive gastritis, other. Nausea 197952161 R11.0 episodes of nausea comes and goes. Plan for EGD as above to further evaluate. Irritable bowel syndrome characterized by alternating bowel habit 115464906 K58.9 alternatin g constipati on and diarrhea Ongoing for many years. Currently taking [employer]. Daily use of MiraLax caused increased diarrhea. Discussed starting magnesium supplement s however patient would like to hold off at this time. Unintentio nal weight loss 587512278 R63.4 14 lb weight loss over the past 6 months. She has been under lot of stress which could be contributi ng to her symptoms. Recommend comprehens dennis evaluation with EGD/colono scopy to further evaluate. Last colonoscop y greater than 10 years ago which she reports as normal. [id number] Laura Hare NP [facility] [address] [place] [phone] 01/30/2024 14:41:50 01/30/2024 15:13:41 Helicobacter pylori-associated gastritis 997584690 B96.81 H pylori gastritis confirmed on pathology from EGD 01/02/2024 . Recommend continued use of PPI b.i.d. as prescribed following procedure. Will send antibiotic s for treatment. Nausea 057074649 R11.0 episodes of nausea comes and goes. Plan to treat H pylori above. Recommend Zofran Q 4-6 hours p.r.n.. Irritable bowel syndrome characterized by alternating bowel habit 997860839 K58.9 Colonoscop y with negative random colon biopsies 01/02/2024 . Peptic ulcer 77828574 K2 7.9 PUD with significan t edema and partial gastric outlet obstructio n noted on EGD 01/02/24. patient continues pantoprazo le 40 mg b.i.d. as prescribed following procedure. Plan to treat H pylori as above. UGI with esophagram completed 01/16/2024 noted distal esophageal narrowing. Patient is scheduled for follow-up EGD February 12. [id number] Laura Hare NP [facility] [address] [place] [phone] 06/04/2024 10:47:57 06/04/2024 11:19:27 Peptic ulcer 24884036 K27.9 PUD with significan t edema and [...] bowel syndrome characterized by alternating bowel habit 740258838 K58.9 Experienci ng some occasional episodes of constipati on at this time. Recommend starting miralax 17 gm po daily as well as OTC fiber supplement s for treatment. Colonoscop y with negative random colon biopsies 01/02/2024 . History of Helicobacter pylori infection 8252965989 1656961 Z86.19 History of H pylori gastritis confirmed on pathology from EGD 12/2023. Follow-up EGD completed 02/13/2024 confirmed eradicatio n with negative pathology. I have recommende d starting daily OTC probiotics for 1-2 months. [id number] Faustino Rivera M.D [facility] [place] [address] [address] [place] [phone] 06/23/2024 09:18:31 06/23/2024 10:47:59 Idiopathic generalized epilepsy 55006437 G40.309 Health Concerns Section Related Observation LastModified by Organization Detai ls LastModified Time None Recorded Concern Status LastModified by Organization Details LastModified Time None Recorded Advance Directives Directive N: Payers Insurance Date Sequence Insurance Name Policy Number Policy Goldman Covered Member ID Goldman Member ID Guarantor Name 06/20/2024 1 [place] [id number] Byron Aparicio [id number] Byron Aparicio Notes Date Note Type [...] past 6 months. Laura Hare NP [address], [address], [place], [address], [facility] 12/05/2023 15:46:06 01/30/2024 text/html patient returns to [...] random colon biopsies. Laura Hare NP [address], [address], [place], [address], [facility] & [place] 01/30/2024 15:26:09 06/04/2024 text/html Patient returns to [...] random colon biopsies. Laura Hare NP [address], [address], [place], [address], [facility] 06/04/2024 12:35:04 06/23/2024 text/html Ms. Byron Aparicio [...] takes medication for that. Faustino Rivera M.D [address] [place] [address], [address], [place], [address], [place] [facility] [place] 06/23/2024 10:43:51 OBGyn Episode No OBEpisode recorded.
--- OUTSIDE RECORDS SUMMARY | 2024-09-22 10:55 | XMS_ITS ---
Author Organization Unknown Medications Medication Instructions Effective Dates (start - stop) Status levothyroxine sodium 0.05 MG Oral Tablet 7788-49-97U73:00:00.000+00 :00 - Completed buspirone hydrochloride 15 M G Oral Tablet 6248-42-83B28:00:00.000+00 :00 - Completed levothyroxine sodium 0.05 MG Oral Tablet 2150-77-27W36:00:00.000+00 :00 - Completed carbamazepine 200 MG Oral Tablet 7457-92-17E19:00:00.000+00 :00 - Completed estradiol 1 MG Oral Tablet :00:00.000+00 :00 - Completed carbamazepine 200 MG Oral Tablet 6963-84-61B37:00:00.000+00 :00 - Completed estradiol 1 MG Oral Tablet :00:00.000+00 :00 - Completed buspirone hydrochloride 15 M G Oral Tablet 2369-98-85L59:00:00.000+00 :00 - Completed levothyroxine sodium 0.05 MG Oral Tablet 7943-09-54H42:00:00.000+00 :00 - Completed alprazolam 1 MG Oral Tablet 2021:00:00.000+00 :00 - Completed prazosin 1 MG Oral Capsule :00:00.000+00 :00 - Completed estradiol 1 MG Oral Tablet :00:00.000+00 :00 - Completed estradiol 1 MG Oral Tablet :00:00.000+00 :00 - Completed estradiol 1 MG Oral Tablet :00:00.000+00 :00 - Completed buspirone hydrochloride 15 M G Oral Tablet 2666-29-98E56:00:00.000+00 :00 - Completed sertraline 100 MG Oral Tablet 20 04-05-07:00:00.000+00 :00 - Completed lamotrigine 200 MG Oral Tablet 2 367-24-74X53:00:00.000+00 :00 - Completed levothyroxine sodium 0.05 MG Oral Tablet 1430-35-05M79:00:00.000+00 :00 - Completed lamotrigine 25 MG Oral Tablet 20 31-12-17:00:00.000+00 :00 - Completed lamotrigine 200 MG Oral Tablet 2 133-45-84J65:00:00.000+00 :00 - Completed lamotrigine 100 MG Oral Tablet 2 458-02-55R83:00:00.000+00 :00 - Completed lamotrigine 200 MG Oral Tablet 2 375-10-87Q59:00:00.000+00 :00 - Completed carbamazepine 200 MG Oral Tablet 0991-75-34F20:00:00.000+00 :00 - Completed levothyroxine sodium 0.05 MG Oral Tablet 8252-51-93T80:00:00.000+00 :00 - Completed carbamazepine 200 MG Oral Tablet 3955-39-35I31:00:00.000+00 :00 - Completed prazosin 2 MG Oral Capsule :00:00.000+00 :00 - Completed sertraline 100 MG Oral Tablet 31-10-29:00:00.000+00 :00 - Completed promethazine hydrochloride 2 5 MG Oral Tablet 2461-83-93S37:00:00.000+00 :00 - Completed sertraline 100 MG Oral Tablet 31-12-21:00:00.000+00 :00 - Completed lamotrigine 200 MG Oral Tablet 2 158-77-73D84:00:00.000+00 :00 - Completed medroxyprogesterone acetate 5 MG Oral Tablet 3483-90-41K05:00:00.000+00 :00 - Completed lamotrigine 200 MG Oral Tablet 2 957-31-65W92:00:00.000+00 :00 - Completed sertraline 100 MG Oral Tablet 30-09-30:00:00.000+00 :00 - Completed buspirone hydrochloride 30 M G Oral Tablet 6105-70-34I25:00:00.000+00 :00 - Completed alprazolam 1 MG Oral Tablet 2021:00:00.000+00 :00 - Completed buspirone hydrochloride 30 M G Oral Tablet 5614-10-93F50:00:00.000+00 :00 - Completed - 2125-53-41R40:00 :00.000+00 :00 - Completed promethazine hydrochloride 2 5 MG Oral Tablet 6238-43-38N79:00:00.000+00 :00 - Completed sertraline 100 MG Oral Tablet 01-02-28:00:00.000+00 :00 - Completed buspirone hydrochloride 30 M G Oral Tablet 9970-60-88T02:00:00.000+00 :00 - Completed lamotrigine 200 MG Oral Tablet 2 316-43-06D00:00:00.000+00 :00 - Completed sertraline 100 MG Oral Tablet 02-03-28:00:00.000+00 :00 - Completed alprazolam 1 MG Oral Tablet 2022:00:00.000+00 :00 - Completed amoxicillin 500 MG Oral Capsule 1581-21-57V39:00:00.000+00 :00 - Completed carbamazepine 200 MG Oral Tablet 0316-99-38J23:00:00.000+00 :00 - Completed sertraline 100 MG Oral Tablet 01-12-28:00:00.000+00 :00 - Completed promethazine hydrochloride 2 5 MG Oral Tablet 7877-12-43C50:00:00.000+00 :00 - Completed lamotrigine 200 MG Oral Tablet 2 871-00-37D69:00:00.000+00 :00 - Completed medroxyprogesterone acetate 5 MG Oral Tablet 6744-27-88I11:00:00.000+00 :00 - Completed medroxyprogesterone acetate 5 MG Oral Tablet 2101-03-67U64:00:00.000+00 :00 - Completed carbamazepine 200 MG Oral Tablet 9457-48-01H38:00:00.000+00 :00 - Completed medroxyprogesterone acetate 5 MG Oral Tablet 7775-46-24Q37:00:00.00 :00 - Completed medroxyprogesterone acetate 5 MG Oral Tablet 5215-93-58B83:00:00.000+00 :00 - Completed lamotrigine 200 MG Oral Tablet 900-23-12U61:00:00.000+00 :00 - Completed promethazine hydrochloride 2 5 MG Oral Tablet 2053-59-58M37:00:00.00 :00 - Completed promethazine hydrochloride 2 5 MG Oral Tablet 8790-14-62U39:00:00.00000 :00 - Completed alprazolam 1 MG Oral Tablet 2022:00:00.000+00 :00 - Completed alprazolam 1 MG Oral Tablet 2022:00:00.+00 :00 - Completed alprazolam 1 MG Oral Tablet 2022:00:00.00 :00 - Completed alprazolam 1 MG Oral Tablet 2021:00:00.000+00 :00 - Completed Patient Care team information Name Category Status Period Participants - - Proposed period not known -
--- NOTE | 2024-09-22 11:15 | CA_ITS ---
APPROVED REPORT EXAM: Comprehensive 2D, Doppler, and color-flow Echocardiogram Furnace Keeper: Aida Waldron CRT Ht: 5 ft 4 in Wt: 100lbs BSA: 1.46 BP: 127/71 mmHg Indications: Dyspnea 2D Dimensions LA Volume 10.30 mL LA Volume Index 6.90 mL/m2 (M/F) 16-34 M-Mode Dimensions RVDd 2.29 cm (0.9-2.6) LA Diam 2.13 cm (1.9-4.0) LVDd 3.23 cm (3.5-5.7) LVDs 2.24 cm (3.5-5.7) IVSd 1.25 cm (0.6-1.1) PWd 0.80 cm (0.6-1.1) EF (Teich) 59.40% FS 30.70% EDV (Teich) 41.90 mL TAPSE 1.79 (<1.7) ESV (Teich) 17.00 mL LV Diastology E Decel Time 117 (160-240 msec) E/A Ratio 1.17 MED A' 10.50 cm/s LAT A' 5.20 cm/s Aortic Valve AO Peak GR. 3.70 mmHg Mitral Valve MV A Velocity 42.0 (40-130 cm/s) E/A Ratio 1.17 Pulmonary Valve PV Peak Velocity 61.0 (50-150 cm/s) Tricuspid Valve TR P. Velocity 172.00 cm/s RAP Estimate 10.00 mmHg RVSP 21.80 mmHg Left Ventricle The left ventricle is normal size. The left ventricular systolic function is normal. The left ventricular ejection fraction is within the normal range. There is normal left ventricular wall thickness. There is normal LV segmental wall motion. The left ventricular diastolic function is normal. LVEF is 60%. Right Ventricle The right ventricle is normal size. The right ventricular systolic function is normal. Atria The left atrium size is normal. The right atrium size is normal. There is no Doppler evidence of interatrial shunt. Aortic Valve The aortic valve is normal in structure. There is no aortic valvular stenosis. Trace aortic regurgitation. Mitral Valve The mitral valve is normal in structure. No evidence of mitral valve stenosis. Trace mitral regurgitation. Tricuspid Valve Tricuspid valve is grossly normal in structure and function. Trace tricuspid regurgitation. There is insufficient TR jet to estimate RVSP. Pulmonic Valve The pulmonary valve is normal in structure. Trace pulmonic regurgitation. Great Vessels The aortic root is normal in size. IVC is normal in size and collapses >50% with inspiration. Pericardium There is no pericardial effusion. Conclusion Normal biventricular systolic function. No significant valvular stenosis or regurgitation. Electronically signed by : Za Dobbs MD 09/27/2024 20:08:54
== END 2024-09-22 23:59 | disposition home or self-care (01) ==
LOC: RT 10:53
PROVIDERS: PCP Nurse Practitioner; Visit Provider Nurse Practitioner Family
DX: R06.00 Dyspnea, unspecified (principal); Z72.0 Tobacco use
CPT/HCPCS: 93306

== ENCOUNTER 2024-10-20 14:38 | Outpatient (CLI) | payer BC, SELFPAY ==
[2024-10-20 20:43] LABS: Coronavirus 19, PCR Not Detected (NotDetected); Influenza A, PCR Not Detected (NotDetected); Influenza B, PCR Not Detected (NotDetected)
== END 2024-10-20 23:59 | disposition home or self-care (01) ==
LOC: LAB.DROPOF 10-21 10:29
PROVIDERS: PCP Nurse Practitioner Family; Visit Provider Nurse Practitioner Family
DX: J06.9 Acute upper respiratory infection, unspecified (principal); J02.9 Acute pharyngitis, unspecified
CPT/HCPCS: 87631